=== PATIENT | male | born 2000 | race Caucasian/White ===

== ENCOUNTER 2025-09-13 16:06 | Emergency (ER) | payer OTHER ==
[~2025-09-13] VITALS: Ht 175.3 cm; Wt 86.4 kg
[2025-09-13 19:54] VITALS: BP 124/77; PULSE 75; RESP 16; TEMP 97.3; O2SAT 98
== END 2025-09-13 19:56 ==
LOC: EMS 16:06
DX: S82.402A Unspecified fracture of shaft of left fibula, initial encounter for closed fracture (principal); Z85.820 Personal history of malignant melanoma of skin; X50.1XXA Overexertion from prolonged static or awkward postures, initial encounter; Y93.89 Activity, other specified; Y92.89 Other specified places as the place of occurrence of the external cause; Y99.8 Other external cause status
CPT/HCPCS: 99283